=== PATIENT | female | born 1955 | race Caucasian/White ===

== ENCOUNTER 2023-04-19 07:10 | Day surgery (SDC) | payer OTHER ==
[~2023-04-19] VITALS: Ht 154.9 cm; Wt 90.5 kg
[2023-04-19 08:35] VITALS: O2SAT 97
[2023-04-19] MEDS ORDERED: MEPERIDINE 100 MG INJ. 100 MG/ML VIAL ONE ×2 (08:40→09:38)
[2023-04-19] MEDS ORDERED: MIDAZOLAM HCL 5 MG/5 ML VIAL ONE ×2 (08:40→09:38)
[2023-04-19 10:48] VITALS: BP_SYST 104; PULSE 64; RESP 18
== END 2023-04-19 10:33 | disposition home or self-care (01) ==
LOC: SDS 07:10 → SMU 07:12 → SDS 10:33
PROVIDERS: ATTEND Internal Medicine Gastroenterology
DX: Z12.11 Encounter for screening for malignant neoplasm of colon (principal); K64.8 Other hemorrhoids; K57.30 Diverticulosis of large intestine without perforation or abscess without bleeding; K21.9 Gastro-esophageal reflux disease without esophagitis; E11.9 Type 2 diabetes mellitus without complications; E78.5 Hyperlipidemia, unspecified; Z79.899 Other long term (current) drug therapy
CPT/HCPCS: 82962; 99152; G0121; G0378; J2250; J2175; 45378